=== PATIENT | male | born 1995 | race Caucasian/White ===

== ENCOUNTER 2025-08-20 08:30 | Outpatient (CLI) | payer OTHER, SELFPAY ==
[2025-08-20 14:29] LABS: Coronavirus 19, PCR Not Detected (NotDetected); Influenza A, PCR Not Detected (NotDetected); Influenza B, PCR Not Detected (NotDetected)
--- OUTSIDE RECORDS SUMMARY | 2025-08-22 08:38 | XMS_ITS | Clinical Summary ---
Author Organization [facility] Address [address], [address] [place] [address] Care Team Providers Care Woodworker Name Role Phone Unavailable Primary Care Provider Unavailabl e Allergies No known active allergies Social History Tobacco Use Types Packs/Day Years Used Date Smoking Tobacco: Never Smokeless Tobacco: Current Tobacco Cessation:Ready to Q uit: Not Asked; Counseling Given: Not Answered Comments:Zynn nicotine pouches Alcohol Use Standard Drinks/Week Comments Not Currently 0 (1 standard drink = 0.6 oz pur e alcohol) AUDIT-C Answer Date Recorded Q1: How often do you have a drink containing alcohol? Never 06/11/2024 Q2: How many drinks containi ng alcohol do you have on a typical day when you are drinking? Patient does not drink Q3: How often do you have si x or more drinks on one occasion? Never 06/11/2024 Interpersonal Safety Domain Source: IP Abuse Scr eening Answer Date Recorded Physical abuse Denies 06/11/2024 Verbal abuse Denies 06/11/2024 Emotional abuse Denies 06/11/2024 Financial abuse Denies 06/11/2024 Sexual abuse Denies 06/11/2024 Sex and Gender Information Value Date Recorded Sex Assigned at Not on file Legal Sex Male 8:21 PM EDT Gender Identity Not on file Sexual Orientation Not on file Last Filed Vital Signs Vital Sign Reading Time Taken Comments Blood Pressure 128/90 11/29/2024 7:30 PM EDT Pulse 97 11/29/2024 8:45 PM EDT Temperature 36.8 C (98.2 F) 11/29/2024 5:43 PM EDT Respiratory Rate 16 11/29/2024 8:45 PM EDT Oxygen Saturation 97% 11/29/2024 8:45 PM EDT Inhaled Oxygen Concentration - - Weight 107.9 kg (237 lb 12.8 oz) 11/29/2024 5:44 PM EDT Height 177.8 cm (5' 10 ) 11/29/2024 5:44 PM EDT Body Mass Index 34.12 11/29/2024 5:44 PM EDT Plan of Treatment Health Maintenance Due Date Last Done Comments Depression Screen 2009 Varicella vaccine (1 of 2 - 13+ 2-dose series) 2010 HIV screen 2012 Hepatitis C screen 2015 Hepatitis B vaccine (1 of 3 - 19+ 3-dose series) 2016 Flu vaccine (#1) 04/06/2025 08/02/2019 COVID-19 Vaccine (1 - 2023-2 5 season) 2025 DTaP/Tdap/Td vaccine (2 - Td or Tdap) 08/02/2029 08/02/2019 HPV vaccine (No Doses Required) Completed Hepatitis A vaccine Aged Out No longe r eligible based on patient's age to complete this topic Hib vaccine Aged Out No longer eligi ble based on patient's age to complete this topic Meningococcal (ACWY) vaccine Aged Out No longer eligible based on patient's age to complete this topic Meningococcal B vaccine Aged Out No l onger eligible based on patient's age to complete this topic Pneumococcal 0-49 years Vaccine Aged Out No longer eligible based on patient's age to complete this topic Polio vaccine Aged Out No longer elig ible based on patient's age to complete this topic Insurance [facility] BCBS
--- OUTSIDE RECORDS SUMMARY | 2025-08-22 08:38 | XMS_ITS | Encounter Summary ---
Author Organization [facility] Address [address] [place] [address] [place] [address] Phone Care Team Providers Care Dental Resident Name Role Phone Pcp, None Primary Care Provider [phone] Fany Duffy MD Primary Care Provider + [phone] Maxim Rivera CNP Primary Care Provider + Maxim Rivera PRINT AND PATTERN DESIGNER Unavailable [phone] Encounter Details Date Type Department Care Team (Late st Contact Info) Description 07/31/2019 Discharge Call Center Patient Call Center [address] [place] [id number] Social History Tobacco Use Types Packs/Day Years Used Date Smoking Tobacco: Never Smokeless Tobacco: Current Chew Alcohol Use Standard Drinks/Week Comments Yes 1 (1 standard drink = 0.6 oz pur e alcohol) less than 1/week Exercise Vital Sign Answer Date Recorde d Days of Exercise per Week 0 days 2018 Minutes of Exercise per Session 0 min 05/26/2019 Sex and Gender Information Value Date Recorded Sex Assigned at Not on file Legal Sex Male 2:36 PM EDT Gender Identity Male 07/27/2019 9:35 AM EST Sexual Orientation Not on file documented as of this encounter Functional Status * Are you deaf or do you have serious difficulty hearing? Answer Date of Assessment Author No 07/24/2019 3:[address] sophie De León, Registered Nurse * Are you blind or do you have serious difficulty seeing, even when wearing glasses? Answer Date of Assessment Author No 07/24/2019 3:[address] sophie De León, Registered Nurse * Do you have serious difficulty walking or climbing stairs? (5 years old or older) Answer Date of Assessment Author No 07/24/2019 3:[address] sophie De León, Registered Nurse * Do you have difficulty dressing or bathing? (5 years old or older) Answer Date of Assessment Author No 07/24/2019 3:[address] sophie De León, Registered Nurse * Because of a physical, mental, or emotional condition, do you have difficulty doing errands alone such as visiting a doctor???s office or shopping? (15 years old or older) Answer Date of Assessment Author No 07/24/2019 3:[address] sophie De León, Registered Nurse documented as of this encounter Mental Status * Because of a physical, mental, or emotional condition, do you have serious difficulty concentrating, remembering, or making decisions? (5 years old or older) Answer Entry Date Author No 07/24/2019 3:[address] sophie De León, Registered Nurse documented in this encounter Plan of Treatment Upcoming Encounters Date Type Department Care Team (Late st Contact Info) Description 08/29/2025 10:00 AM EST Office Visit [facility] [address] [place] [phone] Maxim Rivera CNP [address] [place] [address] documented as of this encounter Visit Diagnoses Not on filedocumented in this encounter Additional Health Concerns Infection Onset Date Last Indicated Resolved Time COVID-19 Suspect 05/07/2020 05/07/2020 05/08/2020 7:34 AM EDT COVID-19 Suspect 07/29/2020 07/29/2020 08/02/2020 4:04 PM EST COVID-19 Suspect 11/29/2024 11/29/2024 11/29/2024 10:37 AM EDT documented as of this encounter Care Teams Dental Resident Relationship Specialty Start Date End Date PcpEliana MD PCP - General Internal Medicine 07/06/19 10/22/19 Fany Duffy MD PCP - General Family Medicine 10/23/19 06/14/24 Maxim Rivera, JOHNNY PCP - General 06/15/24 Maxim Rivera, JOHNNY [address] [place] [address] PCP - [place] [employer] Attributed Physician 11/04/24 documented as of this encounter
--- OUTSIDE RECORDS SUMMARY | 2025-08-22 08:38 | XMS_ITS | Encounter Summary ---
Author Organization [facility] Address [address] [place] [address] [place] [address] Phone Care Team Providers Care Stockroom Attendant Name Role Phone Maxim Rivera CNP Primary Care Provider + Maxim Rivera CNP Unavailable [phone] Reason for Referral * Consultation (Routine) - Closed Specialty Diagnoses / Procedures Referred By Gordo hayes Referred To Contact Gastroenterology Diagnoses Hematemesis without nausea Maxim Rivera CNP Phone: tel: fax: Dionte De La Torre MD Phone: tel: fax: Referral ID Status Reason Start Date Expiration Date V isits Requested Visits Authorized [id number] Closed Specialty Services Required 06/15/2024 06/15/2025 1 1 Scheduling Instructions [facility] [address] [place] [address] Question Answer Type of Visit Office Visit Comments Possible esophageal varices- went to ER a week ago for 2-3 days of coughing up blood- Xray and blood work normal, CT normal for me today other than some aspirated blood. History of GERD, was on PPI but stopped it- I did restart this. Encounter Details Date Type Department Care Team (Late st Contact Info) Description 06/15/2024 Orders Only [facility] [address] [place] [address] [phone] Maxim Rivera, FERN CUTTER [address] [place], [place] [phone] Hematemesis without nausea (Primary Dx) Social History Tobacco Use Types Packs/Day Years Used Date Smoking Tobacco: Never Smokeless Tobacco: Current Chew Alcohol Use Standard Drinks/Week Comments Not Currently 1 (1 standard drink = 0.6 oz pur e alcohol) less than 1/week [facility] of Occupat ional Health - Occupational Stress Questionnaire Answer Date Recorded Feeling of Stress Not at all 10/24/2019 Exercise Vital Sign Answer Date Recorde d Days of Exercise per Week 0 days 2018 Minutes of Exercise per Session 0 min 05/26/2019 Food Insecurities Answer Date Recorded Worried about running out of food Not on file 09/23/2023 Food Bought Not on file 09/23/2023 Housing/Utilities Answer Date Recorded Worried about losing home Not on file 2023 Stayed outside house Not on file 09/23/2023 Unable to get utilities Not on file 09/23/19 Interpersonal Safety Answer Date Record ed Feel physically or emotionally unsafe where curr ently live Not on file 09/23/2023 Harm by anyone Not on file 09/23/2023 Emotionally Harmed Not on file 09/23/2023 Transportation Answer Date Recorded Worried about transportation Not on file Sex and Gender Information Value Date Recorded [...] Description 08/29/2025 10:00 AM EST Office Visit [facility] [address] [place] [phone] Maxim Rivera, [facility] [address] [place], [place] [address] Scheduled Referrals Name Type Priority Associated Diagnoses Order Schedule AMB REFERRAL TO GASTROENTEROLOGY Outpatient Referral Routine Hematemesis without nausea Expected: 06/16/2024 (Approximate), Expires: 06/15/2025 documented as of this encounter Goals Goal Patient Goal Type Associated Problems Recent Progress Patient-Stated? Author Blood Pressure < 140/90 Blood Pressure 119/61(2024 12:15 PM EDT) No Fany Duffy MD Note: http://www.nhlbi.nih.gov LDL, CALCULATED < 100 Result Component 96(12/08/2024 1:11 PM EDT) No Fany Duffy MD CREATININE < 1.3 Result Component .8(11/29/2024 6:03 PM EDT) Fany Reyes MD Exercising Regularly Self-Managemen Fany Bell MD Note: http://www.[employer] Patient has no barriers to completing goals Self-Managemen Fany Bell MD Patient working to improve diet Self-Managemen Fany Bell MD Patient is monitoring Blood Pressure weekly Self-Managemen Fany Bell MD Note: Sample Blood Pressure Log Date Time Systolic Diastolic 1 2 3 4 5 http://www.nhlbi.nih.gov documented as of this encounter Visit Diagnoses Diagnosis Hematemesis without nausea- Primary documented in this encounter Additional Health Concerns Infection Onset Date Last Indicated Resolved Time COVID-19 Suspect 11/29/2024 11/29/2024 11/29/2024 10:37 AM EDT documented as of this encounter Care Teams Stockroom Attendant Relationship Specialty Start Date End Date Maxim Rivera CNP PCP - General 06/15/24 Maxim Rivera CNP [address] [place] [address] PCP - [place] [employer] Attributed Physician 11/04/24 documented as of this encounter
--- OUTSIDE RECORDS SUMMARY | 2025-08-22 08:39 | XMS_ITS | Clinical Summary ---
Author Organization [facility] Address [address] [place] [phone] Care Team Providers Care Yacht Builder Name Role Phone Maxim Rivera VEHICLE LEASING AND RENTAL MANAGER Primary Care Provider + Maxim Rivera VEHICLE LEASING AND RENTAL MANAGER Unavailable [phone] Allergies No known active allergies Medications omeprazole (PRILOSEC) 40 MG CPDR Take 40 mg by mouth nightly. Active lisinopril (PRINIVIL,ZESTRIL ) 40 mg TABSIndications:E ssential hypertension Take 1 tablet by mouth once daily 90 tablet 3 06/28/2025 Active Active Problems Problem Noted Date Diagnosed Date Obstructive sleep apnea hypopnea, moderate 04/19 Overview (04/19/2020): Sleep study on 04/02/2020 with an SHERINE of 23.2 with lowest spo2 of 75% Gastro-esophageal reflux disease with esophagiti s 10/24/2019 Left sided chest pain 05/26/2019 GERD without esophagitis Nausea & vomiting Encounters Date Type Department Care Team Description 06/28/2025 [facility] [address] [place] [address] Marlo Portillo MD Essential hypertension from Last 3 Months Immunizations Immunization Administration Dates Next Due Human Papillomavirus Quadriv alent (Gardasil) 02/04/2013,10/07/2012,09/06/2012 Influenza Vaccine, Inactivat ed, Quadrivalent PF 08/02/2019 Tdap (Tetanus, Diphtheria & Pertussis) 9,09/06/2014 Family History Medical History Relation Name Comments No Known Medical Problem Brother 1 No Known Medical Problem Brother 2 No Known Medical Problem Brother 3 Heart Disease Father Asthma Mother No Known Medical Problem Sister 1 No Known Medical Problem Sister 2 No Known Medical Problem Sister 3 Relation Name Status Comments Brother 1 Alive Brother 2 Alive Brother 3 Alive Father Alive Mother Alive Sister 1 Alive Sister 2 Alive Sister 3 Alive Social History Tobacco Use Types Packs/Day Years Used Date Smoking Tobacco: Never Smokeless Tobacco: Current Chew Tobacco Cessation:Counseling Given: Yes Alcohol Use Standard Drinks/Week Comments Not Currently 1 (1 standard drink = 0.6 oz pur e alcohol) less than 1/week [facility] of Occupat ional Health - Occupational Stress [...] AM EST Sexual Orientation Not on file Last Filed Vital Signs Vital Sign Reading Time Taken Comments Blood Pressure 119/61 04/11/2025 12:15 PM EDT Pulse 74 04/11/2025 12:15 PM EDT Temperature 36.7 C (98.1 F) 04/11/2025 11:05 AM EDT Respiratory Rate 13 04/11/2025 12:15 PM EDT Oxygen Saturation 99% 04/11/2025 12:15 PM EDT Inhaled Oxygen Concentration - - Weight 108.4 kg (239 lb) 04/11/2025 11:05 AM EDT Height 175.3 cm (5' 9 ) 04/11/2025 11:05 AM EDT Body Mass Index 35.29 04/11/2025 11:05 AM EDT Plan of Treatment Upcoming Encounters Date Type Department Care Team (Late st Contact Info) Description 08/29/2025 10:00 AM EST Office Visit [facility] [address] [place] [address] Maxim Rivera, [facility] [address] [place], [place] [phone] Health Maintenance Due Date Last Done Comments Influenza Vaccine (#1) 2025 08/02/2019 DTap,Tdap,and Td (3 - Td or Tdap) 08/02/2029 08/02/2019, 09/06/2014 RSV Vaccine (60+ or ) (1 - 1-dose 75+ series) 2072 HPV Completed 02/04/2013, 10/07/2012, 09/06/2012 Meningococcal conjugate susan nt 4 (MCV4) Aged Out No longer eligible b ased on patient's age to complete this topic Pneumococcal 0-49 Aged Out No longer eligible based on patient's age to complete this topic RSV Immunization (<20 months) Aged Out No longer eligible based on patient's age to complete this topic Goals Goal Patient Goal Type Associated Problems Recent Progress Patient-Stated? Author Blood Pressure < 140/90 Blood Pressure 119/61(2024 12:15 PM EDT) No Fany Duffy MD Note: http://www.nhlbi.nih.gov LDL, CALCULATED < 100 Result Component 96(12/08/2024 1:11 PM EDT) Fany Reyes MD CREATININE < 1.3 Result Component .8(11/29/2024 6:03 PM EDT) Fany Reyes MD Exercising Regularly Self-Managemen t No Fany Duffy MD Note: http://www.[employer] Patient has no barriers to completing goals Self-Managemen Fany Bell MD Patient working to improve diet Self-Managemen t Fany Reyes MD Patient is monitoring Blood Pressure weekly Self-Managemen t Fany Reyes MD Note: Sample Blood Pressure Log Date Time Systolic Diastolic 1 2 3 4 5 http://www.nhlbi.nih.gov Insurance [facility] [employer] X Care Teams Yacht Builder Relationship Specialty Start Date End Date Maxim Rivera CNP PCP - General 06/15/24 Maxim Rivera CNP [address] [place] [address] PCP - [place] [employer] Attributed Physician 11/04/24
--- OUTSIDE RECORDS SUMMARY | 2025-08-22 08:39 | XMS_ITS | Encounter Summary ---
Author Organization [facility] Address [address] [place] [address] [place] [address] Phone Care Team Providers Care Environment Coordinator Name Role Phone Maxim Rivera WINDOW ASSEMBLER Primary Care Provider + Maxim Rivera WINDOW ASSEMBLER Unavailable [phone] Reason for Visit * Reason Comments Refill Request Encounter Details Date Type Department Care Team (Late st Contact Info) Description 06/28/2025 [facility] [address] [place] [phone] Marlo Portillo MD [address] [place] [address] Essential hypertension Social History Tobacco Use Types Packs/Day Years Used Date Smoking Tobacco: Never Smokeless Tobacco: Current Chew Alcohol Use Standard Drinks/Week Comments Not Currently 1 (1 standard drink = 0.6 oz pur e alcohol) less than 1/week [facility] of Occupat ional Health - Occupational Stress [...] hearing? Answer Date of Assessment Author No 04/04/2025 3:36 PM EDT Amarilis Matt Registered Nurse * Are you blind or do you have serious difficulty seeing, even when wearing glasses? Answer Date of Assessment Author No 04/04/2025 3:36 PM EDT Amarilis Matt Registered Nurse * Do you have serious difficulty walking or climbing stairs? (5 years old or older) Answer Date of Assessment Author No 04/04/2025 3:36 PM EDT Amarilis Matt Registered Nurse * Do you have difficulty dressing or bathing? (5 years old or older) Answer Date of Assessment Author No 04/04/2025 3:36 PM EDT Amarilis Matt Registered Nurse * Because of a physical, mental, or emotional condition, do you have difficulty doing errands alone such as visiting a doctor???s office or shopping? (15 years old or older) Answer Date of Assessment Author No 04/04/2025 3:36 PM EDT Amarilis Matt Registered Nurse documented as of this encounter Mental Status * Because of a physical, mental, or emotional condition, do you have serious difficulty concentrating, remembering, or making decisions? (5 years old or older) Answer Entry Date Author No 04/04/2025 3:36 PM EDT Amarilis Matt Registered Nurse documented in this encounter Plan of Treatment Upcoming Encounters Date Type Department Care Team (Late st Contact Info) Description 08/29/2025 10:00 AM EST Office Visit [facility] [address] [place] [phone] Maxim Rivera CNP [address] [place] [address] documented as of this encounter Goals Goal Patient Goal Type Associated Problems Recent Progress Patient-Stated? Author Blood Pressure < 140/90 Blood Pressure 119/61(2024 12:15 PM EDT) Fany Reyes MD Note: http://www.nhlbi.nih.gov LDL, CALCULATED < 100 Result Component 96(12/08/2024 1:11 PM EDT) Fany Reyes MD CREATININE < 1.3 Result Component .8(11/29/2024 6:03 PM EDT) Fany Reyes MD Exercising Regularly Self-Managemen t Fany Reyes MD Note: http://www.[employer] Patient has no barriers to completing goals Self-Managemen t Fany Reyes MD Patient working to improve diet Self-Managemen t Fany Reyes MD Patient is monitoring Blood Pressure weekly Self-Managemen t Fany Reyes MD Note: Sample Blood Pressure Log Date Time Systolic Diastolic 1 2 3 4 5 http://www.nhlbi.nih.gov documented as of this encounter Visit Diagnoses Diagnosis Essential hypertension Unspecified essential hypertension documented in this encounter Care Teams Environment Coordinator Relationship Specialty Start Date End Date Maxim Rivera CNP PCP - General 06/15/24 Maxim Rivera CNP [address] [place] [address] PCP - Jasper Aparicio Attributed Physician 11/04/24 documented as of this encounter
--- OUTSIDE RECORDS SUMMARY | 2025-08-22 08:39 | XMS_ITS | Clinical Summary ---
Author Organization [facility] Address [address] [place] [address] Care Team Providers Care Network Operations Center Technician Name Role Phone Provider, No Known Primary Care Provider Unavail able Allergies No known active allergies Medications No known medications Social History Tobacco Use Types Packs/Day Years Used Date Smoking Tobacco: Never Assessed Sex and Gender Information Value Date Recorded Sex Assigned at Not on file Legal Sex Male 2:49 AM EDT Gender Identity Not on file Sexual Orientation Not on file Last Filed Vital Signs Vital Sign Reading Time Taken Comments Blood Pressure 112/79 03/30/2025 5:37 AM EDT Pulse 77 03/30/2025 5:25 AM EDT Temperature - - Respiratory Rate - - Oxygen Saturation 97% 03/30/2025 5:25 AM EDT Inhaled Oxygen Concentration - - Weight - - Height - - Body Mass Index - - Plan of Treatment Health Maintenance Due Date Last Done Comments ANNUAL PHYSICAL 1997 INFLUENZA VACCINE 04/06/2025 08/02/2019 TDAP/TD VACCINES (3 - Td or Tdap) 08/02/2029 08/02/2019, 09/06/2014 HEPATITIS C SCREENING Completed 07/06/2024 , 12/17/2020 Pneumococcal Vaccine 0-49 Aged Out No longer eligible based on patient's age to complete this topic Insurance [employer] Care Teams Network Operations Center Technician Relationship Specialty Start Date End Date Provider, [place] [address] PCP - General 03/30/25
--- OUTSIDE RECORDS SUMMARY | 2025-08-22 08:39 | XMS_ITS | Clinical Summary ---
Author Organization [facility] Address [address] [place] [address] Care Team Providers Care [employer] Flatbed Truck Driver Name Role Phone Pcp, No Primary Care Provider [phone] Source Comments This information has been disclosed to you from confidential records protectedfrom disclosure by state law. You shall make no further disclosure of thisinformation without the specific, written, and informed release of theindividual to whom it pertains, or as otherwise permitted by law. A generalauthorization for the release of medical or other information is not sufficientfor the purposes of therelease of HIV test results or diagnoses. [id number] Allergies No known active allergies Medications No known medications Social History Tobacco Use Types Packs/Day Years Used Date Smoking Tobacco: Some Days Cigarettes Smokeless Tobacco: Current Snuff Alcohol Use Standard Drinks/Week Comments Yes 0 (1 standard drink = 0.6 oz pur e alcohol) occas Sex and Gender Information Value Date Recorded Sex Assigned at Not on file Legal Sex Male 9:16 PM EDT Gender Identity Not on file Sexual Orientation Not on file Last Filed Vital Signs Vital Sign Reading Time Taken Comments Blood Pressure 132/81 11/23/2018 1:38 AM EDT Pulse 74 11/23/2018 1:38 AM EDT Temperature 37 C (98.6 F) 11/22/2018 9:24 PM EDT Respiratory Rate 22 11/23/2018 1:38 AM EDT Oxygen Saturation 97% 11/23/2018 1:38 AM EDT Inhaled Oxygen Concentration 97% 11/23/2018 1 :38 AM EDT Weight 104.3 kg (230 lb) 11/22/2018 9:24 PM EDT Height 177.8 cm (5' 10 ) 11/22/2018 9:24 PM EDT Body Mass Index 33 11/22/2018 9:24 PM EDT Plan of Treatment Not on file Insurance [employer] Care Teams Regional Company Flatbed Truck Driver Relationship Specialty Start Date End Date Pcp, No No Address PCP - General Pediatrics 11/22/18
--- OUTSIDE RECORDS SUMMARY | 2025-08-22 08:39 | XMS_ITS | Encounter Summary ---
Author Organization [facility] Address [address] [place] [address] [place] [address] Phone Care Team Providers Care Tax Accounting Assistant Name Role Phone Maxim Rivera HOTEL MAINTENANCE ENGINEER Primary Care Provider + Maxim Rivera HOTEL MAINTENANCE ENGINEER Unavailable [phone] Reason for Visit * Reason Onset Date Comments Patient Question 11/30/2024 Encounter Details Date Type Department Care Team (Late st Contact Info) Description 11/30/2024 Telephone [facility] [address] [place] [id number] Maxim Rivera, HOTEL MAINTENANCE ENGINEER [address], [place] [id number] Social History Tobacco Use Types Packs/Day Years Used Date Smoking Tobacco: Never Smokeless Tobacco: Current Chew Alcohol Use Standard Drinks/Week Comments Not Currently 1 (1 standard drink = 0.6 oz pur e alcohol) less than 1/week [facility] - Occupational Stress [...] to get utilities Not on file 09/23/19 24 Interpersonal Safety Answer Date Record ed Feel [...] León, Registered Nurse documented in this encounter Miscellaneous Notes * Telephone Encounter - Flaquita Lenz - 11/30/2024 2:32 PM EDT [facility] and they changed the medication that Maxim called in for him and put I'm on a Zpak and erythromycin ophthalmic ointment. Patient is stating that Judy never called it in so he was wondering what he should do? documented in this encounter Plan of Treatment Upcoming Encounters Date Type Department Care Team (Late st Contact Info) Description 08/29/2025 10:00 AM EST Office Visit [facility] [address] [place] [phone] Maxim Rivera, JOHNNY [address] [place] [address] documented as of this encounter Goals Goal [...] Self-Managemen t No Fany Duffy MD Note: [email or web address] Patient has no barriers to completing goals Self-Managemen t No Fany Duffy MD Patient working to improve diet Self-Managemen t No Fany Duffy MD Patient is monitoring Blood Pressure weekly Self-Managemen t No Fany Duffy MD Note: Sample Blood Pressure Log Date Time Systolic Diastolic 1 2 3 4 5 [email or web address] documented as of this encounter Visit Diagnoses Not on filedocumented in this encounter Care Teams Tax Accounting Assistant Relationship Specialty Start Date End Date Maxim Rivera, JOHNNY PCP - General 06/15/24 Maxim Rivera, JOHNNY [address] [place] [address] PCP - [employer] Commercial Attributed Physician 11/04/24 documented as of this encounter
== END 2025-08-20 23:59 | disposition home or self-care (01) ==
LOC: LAB.DROPOF 08-22 08:35
PROVIDERS: Visit Provider Nurse Practitioner
DX: J06.9 Acute upper respiratory infection, unspecified (principal); J02.9 Acute pharyngitis, unspecified
CPT/HCPCS: 87631